=== PATIENT | female | born 1970 | race Caucasian/White ===

== ENCOUNTER 2017-07-12 16:36 | Emergency (ER) | payer OTHER ==
[~2017-07-12] VITALS: Ht 154.9 cm; Wt 94.8 kg
[2017-07-12 16:52] VITALS: BP 145/93
[2017-07-12] MEDS ORDERED: MUPIROCIN22 GM TOP ×2 (17:00→17:01)
[2017-07-12] MEDS ORDERED: BACTRIM DS TAB1 EACH PO (17:00)
== END 2017-07-12 17:07 | disposition home or self-care (01) ==
LOC: FSED 16:36
DX: S00.36XA Insect bite (nonvenomous) of nose, initial encounter (principal); S00.462A Insect bite (nonvenomous) of left ear, initial encounter; I10 Essential (primary) hypertension; E78.5 Hyperlipidemia, unspecified; E07.9 Disorder of thyroid, unspecified; F41.9 Anxiety disorder, unspecified; F32.9 Major depressive disorder, single episode, unspecified
CPT/HCPCS: 99282